=== PATIENT | female | born 1980 | race Caucasian/White ===

== ENCOUNTER 2021-11-17 13:16 | Emergency (ER) | payer MEDICAID, SELFPAY ==
[2021-11-17 13:23] VITALS: BP 173/92; PULSE 100; RESP 20; TEMP 37; O2SAT 96; BMI 47.2
[2021-11-17 13:28] LABS: Glucose Point of Care 392 mg/dL (70-110)
[2021-11-17 14:08] LABS: Basophils # 0.1 10^3/uL (0.0-0.1); Basophils % 0.3 %; Eosinophils % 0.2 %; Hemoglobin 14.1 g/dL (11.5-15.3); Lymphocytes # 1.8 10^3/uL (0.8-4.8); Lymphocytes % 12.4 %; Mean Corpuscular Hemoglobin 27.3 pg (28.0-34.0); Mean Corpuscular Volume 85.3 fl (81-99); Mean Platelet Volume 10.5 fL (7.4-10.4); Monocytes # 0.9 10^3/uL (0.2-0.9); Neutrophils # 11.91 10^3/uL (1.8-7.7); Neutrophils % 80.6 %; Nucleated Red Blood Cells % 0 %; Platelet Count 285 10^3/cmm (130-400); Red Blood Count 5.16 10^6/uL (4.1-5.3); Red Cell Distribution Width 13.2 % (12.1-15.1); White Blood Count 14.8 10^3/uL (4.0-10.0)
[2021-11-17 14:25] LABS: Ketone (Acetest) Serum Negative (Negative)
[2021-11-17 14:33] LABS: Alanine Aminotransferase 57 U/L (0-33); Albumin Level 4.4 g/dL (3.5-5.2); Alkaline Phosphatase 83 U/L (35-105); Anion Gap 21.6 (5-19); Aspartate Amino Transferase 31 U/L (0-32); Blood Urea Nitrogen 19 mg/dL (6-20); Calcium 9.6 mg/dL (8.5-10.5); Carbon Dioxide 24 mmol/L (22-29); Chloride 87 mmol/L (98-107); Globulin 2.8 g/dL (1.3-4.6); Glomerular Filtration Rate 54.2 mL/min (90-130); Glucose 386 mg/dL (65-115); Lipase 81 U/L (13-60); Osmolality Calculated 286 mOsm/kg (285-295); Potassium 3.6 mmol/L (3.5-5.1); Sodium 129 mmol/L (136-145); Total Bilirubin 0.6 mg/dL (0.15-1.2); Total Protein 7.2 g/dL (6.6-8.7)
--- NOTE | 2021-11-17 16:23 | W.ED.GENADLT ---
HPI - General Adult General: Chief complaint: Nausea/Vomiting/Diarrhea Stated complaint: Blood Sugars high, N/V Time Seen by Provider: 11/17/21 16:19 History of Present Illness: Patient is a 41-year-old female with history of type 2 diabetes presenting to the emergency room for concerns of uncontrolled glucose in the setting of nausea/vomiting/decreased p.o. intake and diarrhea x3 days. Patient tells me that there is no sick contact at home. She has not started any recent antibiotics or has had any recent travel. Patient tells me that she has been having more than 7 episodes diarrhea a day. Patient denies any melena or hematochezia. Patient has no complaints. Patient tells me that she has had decreased p.o. intake with associated nausea. Patient does not take insulin but only takes metformin. Patient denies any fever/chills, cough, runny nose, or sore throat. Patient also denies any chest pain or shortness of breath. Onset:3 days ago Duration:3 days Location:home Severity:moderate Associated symptoms: Reports nausea and vomiting; Deny chest pain, dyspnea, rash or palpitations Review of Systems Const: Denies: fever(s) or chills Eyes: Denies: change in vision ENMT: Denies: mouth pain Card: Denies: chest pain or palpitations Resp: Denies: dyspnea or non-productive cough GI: Reports: nausea, vomiting and diarrhea; Denies: abdominal pain : Denies: dysuria Musc: Denies: extremity pain Skin/Breast: Denies: rash or new lesions Neuro: Denies: weakness in extremities Psych: Reports: other (Normal mood) Jay/Lymph: Denies: easy bruising PFS ED PFSH: Medical History Diabetes Social History Smoking and tobacco status: never smoked Alcohol intake: never Substance/Drug Use: never Physical Exam Const: COMMON NORMALS: alert HENMT: COMMON NORMALS: atraumatic HEAD & SCALP: atraumatic MOUTH: moist mucous membranes not abnormal Eye: COMMON NORMALS: EOMs intact bilaterally and conjunctivae normal CONJUNCTIVA: Yes conjunctivae normal Neck/C-Spine: COMMON NORMALS: full ROM and supple Resp: COMMON NORMALS: normal respiratory effort and clear to auscultation bilaterally AUSCULTATION: clear to auscultation bilaterally Cardio: COMMON NORMALS: regular rate RATE: regular rate GI: COMMON NORMALS: Soft to palpation and non-tender PALPATION: Yes Soft to palpation OTHER: No focal TTP. NO guarding rebound, guarding, rigidity. No CVA tenderness to percussion. Neg Nuñez/Neg McBurney's point tenderness, no suprabupic tenderness to palpation. Extremity: COMMON NORMALS: full ROM Neuro: SENSORIUM/ORIENTATION: Yes alert MOTOR EXAM: No Abnormal motor strength present and Other motor observations present (no focal motor deficits) Psych: COMMON NORMALS: speech normal SPEECH: Yes normal speech MOOD & AFFECT: Yes euthymic mood Course Vital Signs: Vital signs: Vital Signs Temperature 98.6 F 11/17/21 13:23 Pulse Rate 89 11/17/21 19:01 Respiratory Rate 20 H 11/17/21 13:23 Blood Pressure 181/85 11/17/21 19:01 Pulse Oximetry 95 11/17/21 19:01 Oxygen Delivery Me thod 11/17/21 13:23 MDM - General Adult Medical Decision Making 41-year-old female history of type 2 diabetes currently only on metformin presenting to the emergency room with concerns of hyperglycemia in the setting of nausea and vomiting decreased p.o. intake for the last 3 days. Patient has no abdominal pain complaints. On physical exam, patient is hemodynamically stable, with no focal abdominal tenderness palpation. Lab work-up showed white count 14.8. Creatinine 1.1. I suspect the patient may be dehydrated today. Patient received 2 L fluid, 5 units of short-term insulin, with improvement of glucose. Patient has no signs of anion gap. Patient does not have any serum ketones. At present, do not suspect DKA. In terms of patient's diarrhea and nausea vomiting, suspected gastroenteritis at this time. I do not suspect that patient has any focal surgical pathology as patient does not have any focal abdominal tenderness palpation. I have given the patient fluids and GI cocktail with Zofran. Patient reports feeling symptomatically improved. Patient is able to tolerate p.o. now. Glucose improved on reassessment after 5u of insulin and IVF. I have given patient follow up with our outpatient case manager to be seen by our outpatient endocrinology to start on insulins for type 2 diabetes. Patient aware of a call from our outpatient case manager to schedule for appointment(s) and verbalizes understanding of the importance of following up. I have given patient follow up with our outpatient case manager to be seen by our outpatient PCP for establishing care. Patient aware of a call from our outpatient case manager to schedule for appointment(s) and verbalizes understanding of the importance of following up. Rx tylenol PRN abd pain, maalox/pepcid PRN dyspepsia, and zofran PRN nausea/vomiting Disposition: Discharge. Patient counseled regarding diagnostic impression, treatment plan. Patient given ED strict return precautions to return for continuation, worsening, or development of new symptoms. Instructed to f/u w/ PCP regarding symptoms today. Patient verbalized understanding. Lab Data : 11/17/21 13:49 11/17/21 13:49 Laboratory Results WBC 14.8 10^3/uL (4.0-10.0) H 11/17/21 13:49 RBC 5.16 10^6/uL (4.1-5.3) 11/17/21 13:49 Hgb 14.1 g/dL (11.5-15.3) 11/17/21 13:49 Hct 44.0 % (37.0-47.0) 11/17/21 13:49 MCV 85.3 fl (81-99) 11/17/21 13:49 MCH 27.3 pg (28.0-34.0) L 11/17/21 13:49 MCHC 32.0 g/dL (30.0-36.0) 11/17/21 13:49 RDW 13.2 % (12.1-15.1) 11/17/21 13:49 Plt Count 285 10^3/cmm (130-400) 11/17/21 13:49 MPV 10.5 fL (7.4-10.4) H 11/17/21 13:49 Neut % (Auto) 80.6 % 11/17/21 13:49 Lymph % (Auto) 12.4 % 11/17/21 13:49 [place] % (Auto) 6.0 % 11/17/21 13:49 Eos % (Auto) 0.2 % 11/17/21 13:49 Baso % (Auto) 0.3 % 11/17/21 13:49 Neut # (Auto) 11.91 10^3/uL (1.8-7.7) H 11/17/21 13:49 Lymph # (Auto) 1.8 10^3/uL (0.8-4.8) 11/17/21 13:49 [place] # (Auto) 0.9 10^3/uL (0.2-0.9) 11/17/21 13:49 Eos # (Auto) 0.0 10^3/uL (0.0-0.8) 11/17/21 13:49 Baso # (Auto) 0.1 10^3/uL (0.0-0.1) 11/17/21 13:49 Nucleated RBC % (auto) 0 % 11/17/21 13:49 Nucleated RBCs # 0.0 /100WBC 11/17/21 13:49 Sodium 129 mmol/L (136-145) L 11/17/21 13:49 Potassium 3.6 mmol/L (3.5-5.1) 11/17/21 13:49 Chloride 87 mmol/L (98-107) L 11/17/21 13:49 Carbon Dioxide 24 mmol/L (22-29) 11/17/21 13:49 Anion Gap 21.6 (5-19) H 11/17/21 13:49 BUN 19 mg/dL (6-20) 11/17/21 13:49 Creatinine 1.1 mg/dL (0.5-0.9) H 11/17/21 13:49 GFR Calculation 54.2 mL/min (90-130) L 11/17/21 13:49 Glucose 386 mg/dL (65-115) H 11/17/21 13:49 POC Glucose 232 mg/dL (70-110) H 11/17/21 18:10 Calculated Osmolality 286 mOsm/kg (285-295) 11/17/21 13:49 Calcium 9.6 mg/dL (8.5-10.5) 11/17/21 13:49 Total Bilirubin 0.6 mg/dL (0.15-1.2) 11/17/21 13:49 AST 31 U/L (0-32) 11/17/21 13:49 ALT 57 U/L (0-33) H 11/17/21 13:49 Alkaline Phosphatase 83 U/L (35-105) 11/17/21 13:49 Total Protein 7.2 g/dL (6.6-8.7) 11/17/21 13:49 Albumin 4.4 g/dL (3.5-5.2) 11/17/21 13:49 Globulin 2.8 g/dL (1.3-4.6) 11/17/21 13:49 Lipase 81 U/L (13-60) H 11/17/21 13:49 Urine HCG, Qual Negative (Negative) 11/17/21 18:19 Serum Ketones Negative (Negative) 11/17/21 13:49 Discharge Plan Discharge Patient Disposition: Home Clinical Impression: Hyperglycemia, Nausea & vomiting, Diarrhea Condition: Stable Prescriptions: New Pepcid 20 mg tablet 20 mg PO BID PRN (Reason: abdominal pain) 10 Days Qty: 20 0RF ondansetron 4 mg tablet,disintegrating 4 mg PO TID PRN (Reason: nausea and vomiting) 4 Days Qty: 12 0RF Maalox Advanced 1,000-60 mg tablet,chewable 1 tab PO TID PRN (Reason: abdominal pain) 7 Days Qty: 21 0RF No Action amlodipine 5 mg Tablet 5 mg PO DAILY metformin 1,000 mg Tablet 1,000 mg PO BID zinc 50 mg Tablet 50 mg PO BID hydrochlorothiazide 25 mg Tablet 25 mg PO DAILY albuterol sulfate 90 mcg/actuation Hfa Aerosol Inhaler 2 puff INHALATION 6XD PRN (Reason: Shortness Of Breath) Probiotic 100 billion cell Capsule 1 cap PO DAILY Discharge Orders: Discharge ED (Routine); Ordered 11/17/21 Ordered By: Zabrina Mcdonald Discharge Diet: Advance as tolerated Discharge Activity: Increase activity as tolerated Patient Instructions: Hyperglycemia, Acute Diarrhea (ED) Activity Restrictions/Additional Instructions: Please come back if you have any worsening abdominal pain, fever or chills, nausea or vomiting, diarrhea, blood in the stool, inability hold down liquid or solids, or any new concerning complaints. Our outpatient case manager will have you follow-up with an solution design and analysis manager and a primary cre provider in the next few days. You would be expected to have a phone call with our outpatient case manager who will put you on the schedule. You can expect a call from us in the next 2-3 days. If you don't hear from us, call us back in the emergency room at [phone]. Stand Alone Forms: Work/School Release Coding Level of Care Code ED Legal Director for Chg Fwd Exam Comprehensive
[2021-11-17] MEDS: sodium chloride 0.9% 1,000 ML 999 ML IV ×2 (16:51→18:15)
[2021-11-17] MEDS: ondansetron 2 mg/ML SDV 2 mL 4 MG IVP (16:51)
[2021-11-17] MEDS: lidocaine 2% viscous 15 ML, aluminum-mag hydrox-simethicon 30 ML, sucralfate oral liq 1 GM PO (16:53)
--- NOTE | 2021-11-17 16:57 | PC.NURSE ---
pt reports epigastric pain x2 days accompanied by diarrhea and vomiting, both yellow in color. Denies urinary symptoms. Pt reports having trouble controlling blood sugars over the last month but usually it is around 111. Pt lung sounds clear, bowel sounds present. Pt reports abdomen feels swollen.
[2021-11-17] MEDS: insulin lispro 100 unit/1 mL SUBCUT (17:03)
[2021-11-17 17:04] LABS: Glucose Point of Care 264 mg/dL (70-110)
[2021-11-17 18:20] LABS: Glucose Point of Care 232 mg/dL (70-110)
[2021-11-17 19:01] VITALS: BP 181/85; PULSE 89; O2SAT 95
--- NOTE | 2021-11-18 13:21 | DCPLANNER ---
Addendum entered by Tia Stephenson 12/29/21 12:52: Patient had a follow up appointment with endocrinology - patient did attend appointment Addendum entered by Tia Stephenson 11/26/21 07:57: Patient has a follow up appointment scheduled for Tuesday, December 28, [address] at 8:[address] Blank. Clinic will call patient with appointment information. Original Note: retail area manager had message to schedule a follow up appointment for patient with endocrinology. retail area manager sent patients information to the front office staff at endocrinology. Patients information will be printed and reviewed. Clinic will call patient with appointment information. retail area manager also had message to speak with patient about getting established with a primary care physician. retail area manager called phone number [phone], unable to speak with patient at this time.
== END 2021-11-17 19:00 | disposition home or self-care (01) ==
PROVIDERS: Emergency Provider Emergency Medicine
DX: E11.65 Type 2 diabetes mellitus with hyperglycemia (principal); R11.2 Nausea with vomiting, unspecified; R19.7 Diarrhea, unspecified; Z79.84 Long term (current) use of oral hypoglycemic drugs
CPT/HCPCS: 36415; 36416; 80053; 81025; 82009; 82962; 83690; 85025; 96361; 96372; 96374; 99284; J1815; J2405; J7030

== ENCOUNTER 2021-12-14 08:03 | Emergency (ER) | payer OTHER, MEDICAID, SELFPAY ==
[2021-12-14 08:08] VITALS: BP 169/123; PULSE 89; RESP 16; TEMP 36.6; O2SAT 95; BMI 45.6
[2021-12-14 08:31] LABS: Basophils # 0.1 10^3/uL (0.0-0.1); Basophils % 0.5 %; Eosinophils # 0.1 10^3/uL (0.0-0.8); Hematocrit 45.8 % (37.0-47.0); Hemoglobin 14.6 g/dL (11.5-15.3); Lymphocytes # 2.4 10^3/uL (0.8-4.8); Lymphocytes % 19.9 %; Mean Corpuscular HGB Conc 31.9 g/dL (30.0-36.0); Mean Corpuscular Hemoglobin 27.7 pg (28.0-34.0); Mean Corpuscular Volume 86.7 fl (81-99); Mean Platelet Volume 10.3 fL (7.4-10.4); Neutrophils % 70.4 %; Nucleated Red Blood Cells % 0 %; Platelet Count 325 10^3/cmm (130-400); Red Blood Count 5.28 10^6/uL (4.1-5.3); White Blood Count 12.2 10^3/uL (4.0-10.0)
[2021-12-14 08:46] LABS: Add Urine Culture? No; Add Urine Microscopic? YES; Bacteria Urine 2+ /hpf; Bilirubin Urine 1+ (Negative); Blood Urine Neg (Negative); Glucose Urine UA 4+ (Normal); Ketones Urine 1+ (Negative); Leukocyte Esterase Urine Negative (Negative); Mucus Urine 2+ /hpf; Nitrate Urine Negative (Negative); Protein Urine Trace (Negative); RBC Urine 0-4 /hpf (0-2); Urine Appearance SL Hazy (CLEAR); Urine Color Dark Yellow (Yellow); Urobilinogen Urine Norm (Negative); WBC Urine 0-4 /hpf (0-5); pH Urine 5 (5-7)
[2021-12-14 08:50] LABS: Alanine Aminotransferase 68 U/L (0-33); Albumin Level 4.5 g/dL (3.5-5.2); Alkaline Phosphatase 83 U/L (35-105); Aspartate Amino Transferase 34 U/L (0-32); Blood Urea Nitrogen 18 mg/dL (6-20); Calcium 10.1 mg/dL (8.5-10.5); Carbon Dioxide 21 mmol/L (22-29); Chloride 95 mmol/L (98-107); Globulin 3.4 g/dL (1.3-4.6); Glomerular Filtration Rate 60.5 mL/min (90-130); Glucose 281 mg/dL (65-115); Lipase 53 U/L (13-60); Osmolality Calculated 290 mOsm/kg (285-295); Sodium 134 mmol/L (136-145); Total Bilirubin 0.6 mg/dL (0.15-1.2); Total Protein 7.9 g/dL (6.6-8.7)
[2021-12-14 08:54] LABS: Anion Gap 21.7 (5-19); Potassium 3.7 mmol/L (3.5-5.1)
--- NOTE | 2021-12-14 08:58 | W.ED.GENADLT ---
HPI - General Adult General: Chief complaint: General Medical Stated complaint: high bloodsugar Time Seen by Provider: 12/14/21 08:33 Source: patient Mode of arrival: ambulatory Limitations: no limitations History of Present Illness: 41-year-old female presents emergency room comes leading of elevated blood sugars. He had blood sugars over 300 near 400 today she been nauseous she feels her blood pressure has been elevated as well just generally not feeling good. She is on metformin for her diabetes was recently started on Ozempic but she was not able to get it because of cost issues. She denies any chest pain she has nausea but no vomiting. Is been progressively worsening the last couple of days. Onset (ago): day(s) Severity: mild Quality: aching Pain Consistency: intermittent Relieving factors: none Exacerbating factors: none Associated symptoms: Deny chest pain, confusion, cough, diaphoresis, decreased appetite, dyspnea, fevers/chills, headache(s), malaise, nausea, rash, palpitations, seizures, short of breath, syncope, vomiting or weakness Review of Systems Const: Denies: fever(s), chills, fatigue, malaise or diaphoresis ENMT: Denies: throat pain, ear or mastoid pain, nasal discharge or nasal congestion Card: Denies: chest pain, palpitations or syncope Resp: Denies: dyspnea GI: Denies: nausea or vomiting : Denies: flank pain, difficulty voiding, dysuria, urinary frequency or urinary urgency Skin/Breast: Denies: rash Neuro: Denies: headache(s) or confusion [facility] ED PFSH: Medical History Diabetes Social History Smoking and tobacco status: never smoked Alcohol intake: never Female Reproductive History: Date of last menstrual period: 11/20/21 Physical Exam Const: GENERAL APPEARANCE: cooperative and comfortable ORIENTATION/CONSCIOUSNESS: Yes awake, Yes oriented to person, Yes oriented to place and Yes oriented to time HENMT: COMMON NORMALS: normocephalic, atraumatic and hearing grossly normal bilaterally HEAD & SCALP: normocephalic and atraumatic Resp: COMMON NORMALS: normal respiratory effort, No retractions, No use of accessory muscles and clear to auscultation bilaterally AUSCULTATION: clear to auscultation bilaterally Cardio: COMMON NORMALS: regular rate, regular rhythm and No murmurs present (Cardio) RATE: regular rate RHYTHM: regular rhythm GI: COMMON NORMALS: Soft to palpation and No hepatosplenomegaly present AUSCULTATION: Yes normoactive bowel sounds PALPATION: Yes Soft to palpation, No Tenderness to palpation present (GI), No Guarding due to palpation present (GI) and Yes No hepatosplenomegaly present Extremity: COMMON NORMALS: normal to inspection, capillary refill normal, no clubbing, cyanosis or edema, no calf tenderness and no pedal edema Neuro: SENSORIUM/ORIENTATION: Yes oriented to person, Yes oriented to place and Yes oriented to time Skin: COMMON NORMALS: no rashes or lesions noted GENERAL SKIN EXAM: no rashes or lesions noted Course Vital Signs: Vital signs: Vital Signs Temperature 97.8 F 12/14/21 08:08 Pulse Rate 85 12/14/21 11:41 Respiratory Rate 14 12/14/21 11:41 Blood Pressure 138/98 12/14/21 11:41 Pulse Oximetry 96 12/14/21 11:41 Oxygen Delivery Me thod 12/14/21 11:41 MDM - General Adult Medical Decision Making Patient is feeling better after fluids blood sugars improved we will discharge her home wrote her prescription for Ozempic that she can get on the [facility] program she is scheduled to see endocrinology discussed risk benefits and side effects of the Ozempic. Medical Records I reviewed the patient's medical records. Lab Data I reviewed the patient's lab results. : 12/14/21 08:23 12/14/21 08:23 Laboratory Results WBC 12.2 10^3/uL (4.0-10.0) H 12/14/21 08:23 RBC 5.28 10^6/uL (4.1-5.3) 12/14/21 08:23 Hgb 14.6 g/dL (11.5-15.3) 12/14/21 08:23 Hct 45.8 % (37.0-47.0) 12/14/21 08:23 MCV 86.7 fl (81-99) 12/14/21 08:23 MCH 27.7 pg (28.0-34.0) L 12/14/21 08:23 MCHC 31.9 g/dL (30.0-36.0) 12/14/21 08: RDW 13.0 % (12.1-15.1) 12/14/21 08: Plt Count 325 10^3/cmm (130-400) 12/14/21 08:23 MPV 10.3 fL (7.4-10.4) 12/14/21 08: Neut % (Auto) 70.4 % 12/14/21 08: Lymph % (Auto) 19.9 % 12/14/21 08:23 [place] % (Auto) 8.0 % 12/14/21 08: Eos % (Auto) 1.0 % 12/14/21 08: Baso % (Auto) 0.5 % 12/14/21 08: Neut # (Auto) 8.60 10^3/uL (1.8-7.7) H 12/14/21 08: Lymph # (Auto) 2.4 10^3/uL (0.8-4.8) 12/14/21 08: [place] # (Auto) 1.0 10^3/uL (0.2-0.9) H 12/14/21 08:23 Eos # (Auto) 0.1 10^3/uL (0.0-0.8) 12/14/21 08: Baso # (Auto) 0.1 10^3/uL (0.0-0.1) 12/14/21 08: Nucleated RBC % (auto) 0 % 12/14/21 08: Nucleated RBCs # 0.0 /100WBC 12/14/21 08: Sodium 134 mmol/L (136-145) L 12/14/21 08:23 Potassium 3.7 mmol/L (3.5-5.1) 12/14/21 08: Chloride 95 mmol/L (98-107) L 12/14/21 08:23 Carbon Dioxide 21 mmol/L (22-29) L 12/14/21 08:23 Anion Gap 21.7 (5-19) H 12/14/21 08:23 BUN 18 mg/dL (6-20) 12/14/21 08:23 Creatinine 1.0 mg/dL (0.5-0.9) H 12/14/21 08:23 GFR Calculation 60.5 mL/min (90-130) L 12/14/21 08:23 Glucose 281 mg/dL (65-115) H 12/14/21 08:23 POC Glucose 260 mg/dL (70-110) H 12/14/21 09:06 Calculated Osmolality 290 mOsm/kg (285-295) 12/14/21 08:23 Calcium 10.1 mg/dL (8.5-10.5) 12/14/21 08:23 Total Bilirubin 0.6 mg/dL (0.15-1.2) 12/14/21 08:23 AST 34 U/L (0-32) H 12/14/21 08:23 ALT 68 U/L (0-33) H 12/14/21 08:23 Alkaline Phosphatase 83 U/L (35-105) 12/14/21 08:23 Total Protein 7.9 g/dL (6.6-8.7) 12/14/21 08:23 Albumin 4.5 g/dL (3.5-5.2) 12/14/21 08:23 Globulin 3.4 g/dL (1.3-4.6) 12/14/21 08:23 Lipase 53 U/L (13-60) 12/14/21 08:23 HCG, Qual Negative (Negative) 12/14/21 08:50 Urine Color Dark yellow (Yellow) 12/14/21 08:23 Urine Appearance Sl hazy (CLEAR) 12/14/21 08:23 Urine pH 5 (5-7) 12/14/21 08:23 Ur Specific [place] 1.020 (1.005-1.030) 12/14/21 08:23 Urine Protein Trace (Negative) 12/14/21 08:23 Urine Glucose (UA) 4+ (Normal) H 12/14/21 08:23 Urine Ketones 1+ (Negative) H 12/14/21 08:23 Urine Blood Neg (Negative) 12/14/21 08:23 Urine Nitrate Negative (Negative) 12/14/21 08:23 Urine Bilirubin 1+ (Negative) H 12/14/21 08:23 Urine Urobilinogen Norm mg/dL (Negative) 12/14/21 08:23 Ur Leukocyte Esterase Negative (Negative) 12/14/21 08:23 Urine RBC 0-4 /hpf (0-2) H 12/14/21 08:23 Urine WBC 0-4 /hpf (0-5) H 12/14/21 08:23 Ur Squamous Epith Cells 10-15 /hpf (0-5) H 12/14/21 08:23 Amorphous Sediment Not Reportable 12/14/21 08:23 Urine Bacteria 2+ /hpf (NONE) H 12/14/21 08:23 Urine Mucus 2+ /hpf 12/14/21 08:23 Serum Ketones Negative (Negative) 12/14/21 08:50 Discharge Plan Discharge Patient Disposition: Home Clinical Impression: Hyperglycemia, Diabetes Condition: Stable Prescriptions: New Ozempic 1 mg/dose (4 mg/3 mL) pen injector 1 mg SUBCUT ONCE Qty: 3 0RF No Action metformin 1,000 mg Tablet 1,000 mg PO BID zinc 50 mg Tablet 50 mg PO QAM hydrochlorothiazide 25 mg Tablet 25 mg PO QAM albuterol sulfate 90 mcg/actuation Hfa Aerosol Inhaler 2 puff INHALATION Q4H PRN (Reason: Shortness Of Breath) Probiotic 100 billion cell Capsule 1 cap PO QAM amlodipine 10 mg tablet 10 mg PO QAM ibuprofen 200 mg Tablet 400 mg PO Q6H PRN (Reason: Pain) Discharge Orders: Discharge ED (Routine); Ordered 12/14/21 Ordered By: Kervin Mcdonough Discharge Diet: Diabetic Discharge Activity: Increase activity as tolerated Patient Instructions: Opioid Safety, Pain Management Activity Restrictions/Additional Instructions: Monitor blood sugars daily. Follow-up with endocrinology as scheduled. Return if there are problems. Coding Level of Care Code ED Vice President Of Instruction for Lizet Vickers
--- NOTE | 2021-12-14 08:59 | PC.PHAR ---
pt states she takes care of her own medications-pt states she was prescribed ozempic last week but states she didnt get states it was over a 1,000 dollars-notes are made in the pharmacy comments
[2021-12-14 09:18] LABS: Ketone (Acetest) Serum Negative (Negative)
[2021-12-14 09:20] LABS: Glucose Point of Care 260 mg/dL (70-110)
[2021-12-14] MEDS: ondansetron 2 mg/ML SDV 2 mL 4 MG IVP (09:20)
[2021-12-14] MEDS: sodium chloride 0.9% 1,000 ML 999 ML IV (09:20)
[2021-12-14 09:21] LABS: HCG, Serum Qual Negative (Negative)
[2021-12-14 11:41] VITALS: BP 138/98; PULSE 85; RESP 14; O2SAT 96
[2021-12-15 08:40] LABS: Glucose Point of Care 287 mg/dL (70-110)
== END 2021-12-14 11:43 | disposition home or self-care (01) ==
PROVIDERS: Physician Assistant; Emergency Provider Family Medicine
DX: E11.65 Type 2 diabetes mellitus with hyperglycemia (principal); Z79.84 Long term (current) use of oral hypoglycemic drugs
CPT/HCPCS: 36416; 80053; 81001; 82009; 82962; 83690; 84703; 85025; 96361; 96374; 99284; J2405; J7030

== ENCOUNTER → 2021-12-28 09:00 | Outpatient (BNVA) | payer MEDICAID, SELFPAY | PROVIDERS: Referring Provider Emergency Medicine; Visit Provider Internal Medicine | DX: E78.2 Mixed hyperlipidemia (principal) | CPT/HCPCS: 36415; 80061; 82947; 84681; 86337; 86341 ==

== ENCOUNTER 2022-04-05 08:27 | Emergency (ER) | payer MEDICAID, SELFPAY ==
--- NOTE | 2022-04-05 08:32 | XRR_ITS ---
PROCEDURE INFORMATION: Exam: XR Chest Exam date and time: 04/05/2022 9:15 AM Age: 41 years old Clinical indication: Cough and dyspnea; Additional info: Dyspnea/cough TECHNIQUE: Imaging protocol: Radiologic exam of the chest. Views: 1 view. COMPARISON: No relevant prior studies available. FINDINGS: Lungs: Unremarkable. No consolidation. Pleural spaces: Unremarkable. No pleural effusion. No pneumothorax. Heart/Mediastinum: Unremarkable. No cardiomegaly. Bones/joints: Unremarkable. XR/XR chest 1V portable [id number] IMPRESSION: No acute findings.
[2022-04-05 08:40] VITALS: BP 158/110; PULSE 85; RESP 18; TEMP 37.1; O2SAT 98; BMI 45.8
--- NOTE | 2022-04-05 08:43 | ECG_ITS ---
[facility] Test Date: 2022-04-05 Pat Name: Carmelina Garcia Department: Room: Gender: Female Quality Compliance Coordinator: : 1980 Requested By: Kervin Still Order Number: [id number] Karmen MD: Arianna Freeman M.D. Measurements Intervals Phillips Rate: 86 P: 30 MI: 161 QRS: -45 QRSD: 102 T: 21 QT: 372 QTc: 446 Interpretive Statements SINUS RHYTHM LOW QRS VOLTAGE IN PRECORDIAL LEADS [QRS DEFLECTION < 1.0 mV IN CHEST LEADS] INCOMPLETE RIGHT BUNDLE BRANCH BLOCK [90+ ms QRS DURATION, TERMINAL R IN V1/V2, 40+ ms S IN I/aVL/V4/V5/V6] LEFT ANTERIOR FASCICULAR BLOCK [QRS AXIS <= -45, QR IN I, RS IN II] POSSIBLE ANTERIOR MYOCARDIAL INFARCTION , OF INDETERMINATE AGE [30 ms Q WAVE IN V3/V4, OR R < 0.2 mV IN V4] No previous ECG available for comparison Electronically Signed On 04-05-2022 20:25:15 HEATER WORKER by Arianna Freeman M.D. [email or web address]
[2022-04-05 08:44] VITALS: BP 155/103; PULSE 80; O2SAT 97
--- NOTE | 2022-04-05 08:58 | ED_ITS ---
HPI - General Adult General: Chief complaint: General Medical Stated complaint: bp issues Time Seen by Provider: 04/05/22 08:29 History of Present Illness: 41-year-old male presents to the emergency room complaining of just generally not feeling well. She complaining the last several days she just felt poorly she is noted some high blood pressures at home she is diabetic. She is on amlodipine and hydrochlorothiazide. Not had any recent change in medication she denies any recent illness no vomiting or diarrhea she is. No chest or abdominal pain she does have a little bit of a headache she noticed anything that makes it better or worse this morning she felt more flushed and the headache was worsening so she presents to the emergency room and the nurses notes she also made a comment to them about flank pain but had made no comment to me initially about this. Onset (ago): day(s) Location: abdomen Associated symptoms: Deny chest pain, dyspnea, malaise, nausea, rash or vomiting Review of Systems Const: Denies: fever(s), chills, body aches, change in appetite, fatigue or malaise ENMT: Denies: throat pain, ear or mastoid pain, nasal discharge or nasal congestion Card: Denies: chest pain, edema, dyspnea on exertion or orthopnea Resp: Denies: dyspnea, productive cough or non-productive cough GI: Denies: abdominal pain, nausea, vomiting, hematemesis, coffee ground emesis, diarrhea, constipation, bloating, hematochezia or melena : Denies: flank pain, difficulty voiding, dysuria, urinary frequency or urinary urgency Skin/Breast: Denies: rash or pruritus PFSH ED PFSH: Medical History Diabetes Surgical History History of colonoscopy History of laparoscopic cholecystectomy History of tubal ligation Social History Smoking and tobacco status: never smoked Alcohol intake: never Female Reproductive History: Date of last menstrual period: 11/20/21 Physical Exam Const: GENERAL APPEARANCE: cooperative and comfortable ORIENTATION/CON SCIOUSNESS: Yes awake, Yes oriented to person, Yes oriented to place and Yes oriented to time HENMT: COMMON NORMALS: normocephalic, atraumatic and hearing grossly normal bilaterally HEAD & SCALP: normocephalic and atraumatic Resp: COMMON NORMALS: normal respiratory effort, No retractions, No use of accessory muscles and clear to auscultation bilaterally AUSCULTATION: clear to auscultation bilaterally Cardio: COMMON NORMALS: regular rate, regular rhythm and No murmurs present (Cardio) RATE: regular rate RHYTHM: regular rhythm GI: COMMON NORMALS: Soft to palpation and No hepatosplenomegaly present AUSCULTATION: Yes normoactive bowel sounds PALPATION: Yes Soft to palpation, No Tenderness to palpation present (GI), No Guarding due to palpation present (GI) and Yes No hepatosplenomegaly present Extremity: COMMON NORMALS: normal to inspection, capillary refill normal, no clubbing, cyanosis or edema, no calf tenderness and no pedal edema Neuro: SENSORIUM/ORIENTATION: Yes oriented to person, Yes oriented to place and Yes oriented to time Skin: COMMON NORMALS: no rashes or lesions noted GENERAL SKIN EXAM: no rash es or lesions noted Course Vital Signs: Vital signs: Vital Signs Temperature 98.8 F 04/05/22 08:40 Pulse Rate 89 04/05/22 11:16 Respiratory Rate 19 H 04/05/22 11:16 Blood Pressure 150/93 04/05/22 11:16 Pulse Oximetry 97 04/05/22 11:16 Oxygen Delivery Me thod 04/05/22 11:01 MDM - General Adult Medical Decision Making No significant flank pain on exam urine is normal. Blood pressure mildly elevated and very slight decrease in potassium we will add lisinopril 20 mg daily and have her follow-up for repeat BMP within 1 week with her primary care doctor return if is further problems. Medical Records I reviewed the patient's medical records. Lab Data I reviewed the patient's lab results. 04/05/22 08:54 04/05/22 08:54 Radiology Impressions Chest X-Ray 04/05/22 08:32 IMPRESSION: No acute findings. Laboratory Results WBC 14.8 10^3/uL (4.0-10.0) H 04/05/22 08:54 RBC 5.16 10^6/uL (4.1-5.3) 04/05/22 08:54 Hgb 13.9 g/dL (11.5-15.3) 04/05/22 08:54 Hct 44.4 % (37.0-47.0) 04/05/22 08:54 MCV 86.0 fl (81-99) 04/05/22 08:54 MCH 26.9 pg (28.0-34.0) L 04/05/22 08:54 MCHC 31.3 g/dL (30.0-36.0) 04/05/22 08:54 RDW 13.2 % (12.1-15.1) 04/05/22 08:54 Plt Count 343 10^3/cmm (130-400) 04/05/22 08:54 MPV 9.9 fL (7.4-10.4) 04/05/22 08:54 Neut % (Auto) 70.0 % 04/05/22 08:54 Lymph % (Auto) 19.4 % 04/05/22 08:54 [place] % (Auto) 8.5 % 04/05/22 08:54 Eos % (Auto) 1.1 % 04/05/22 08:54 Baso % (Auto) 0.5 % 04/05/22 08:54 Neut # (Auto) 10.35 10^3/uL (1.8-7.7) H 04/05/22 08:54 Lymph # (Auto) 2.9 10^3/uL (0.8-4.8) 04/05/22 08:54 [place] # (Auto) 1.3 10^3/uL (0.2-0.9) H 04/05/22 08:54 Eos # (Auto) 0.2 10^3/uL (0.0-0.8) 04/05/22 08:54 Baso # (Auto) 0.1 10^3/uL (0.0-0.1) 04/05/22 08:54 Nucleated RBC % (auto) 0 % 04/05/22 08:54 Nucleated RBCs # 0.0 /100WBC 04/05/22 08:54 Sodium 137 mmol/L (136-145) 04/05/22 08:54 Potassium 3.3 mmol/L (3.5-5.1) L 04/05/22 08:54 Chloride 96 mmol/L (98-107) L 04/05/22 08:54 Carbon Dioxide 29 mmol/L (22-29) 04/05/22 08:54 Anion Gap 15.3 (5-19) 04/05/22 08:54 BUN 17 mg/dL (6-20) 04/05/22 08:54 Creatinine 0.9 mg/dL (0.5-0.9) 04/05/22 08:54 GFR Calculation 68.3 mL/min (90-130) L 04/05/22 08:54 Glucose 157 mg/dL (65-115) H 04/05/22 08:54 Calculated Osmolality 289 mOsm/kg (285-295) 04/05/22 08:54 Calcium 9.8 mg/dL (8.5-10.5) 04/05/22 08:54 Total Bilirubin 0.7 mg/dL (0.15-1.2) 04/05/22 08:54 AST 23 U/L (0-32) 04/05/22 08:54 ALT 34 U/L (0-33) H 04/05/22 08:54 Alkaline Phosphatase 80 U/L (35-105) 04/05/22 08:54 Total Protein 7.8 g/dL (6.6-8.7) 04/05/22 08:54 Albumin 4.4 g/dL (3.5-5.2) 04/05/22 08:54 Globulin 3.4 g/dL (1.3-4.6) 04/05/22 08:54 Urine Color Yellow (Yellow) 04/05/22 09:10 Urine Appearance Clear (CLEAR) 04/05/22 09:10 Urine pH 5 (5-7) 04/05/22 09:10 Ur Specific [place] 1.020 (1.005-1.030) 04/05/22 09:10 Urine Protein Trace (Negative) 04/05/22 09:10 Urine Glucose (UA) Norm (Normal) 04/05/22 09:10 Urine Ketones Negative (Negative) 04/05/22 09:10 Urine Blood Neg (Negative) 04/05/22 09:10 Urine Nitrate Negative (Negative) 04/05/22 09:10 Urine Bilirubin 1+ (Negative) H 04/05/22 09:10 Urine Urobilinogen Norm mg/dL (Negative) 04/05/22 09:10 Ur Leukocyte Esterase Negative (Negative) 04/05/22 09:10 Urine RBC None /hpf (0-2) 04/05/22 09:10 Urine WBC 0-4 /hpf (0-5) H 04/05/22 09:10 Ur Squamous Epith Cells 5-10 /hpf (0-5) H 04/05/22 09:10 Amorphous Sediment Not Reportable 04/05/22 09:10 Urine Bacteria 2+ /hpf (NONE) H 04/05/22 09:10 Hyaline Casts 5-10 /lpf H 04/05/22 09:10 Discharge Plan Discharge Patient Disposition: Home Clinical Impression: HTN (hypertension), Diabetes type 2, uncontrolled Condition: Stable Prescriptions: New lisinopril 20 mg tablet 20 mg PO DAILY Qty: 30 0RF No Action insulin glargine [Lantus Solostar U-100 Insulin] 100 unit/mL (3 mL) insulin pen 50 unit SUBCUT DAILY 30 Days Qty: 15 3RF (DME) pen needle, diabetic [Comfort EZ Pen [place]] 32 gauge x 5/32 needle See Rx Instructions .Route Qty: 400 3RF Rx Instructions: As directed insulin aspart U-100 [Novolog Flexpen U-100 Insulin] 100 unit/mL (3 mL) insulin pen 20 unit SUBCUT .TIDAC 90 Days Qty: 60 3RF zinc acetate 50 mg (zinc) Capsule 50 mg PO DAILY chlorthalidone 25 mg tablet 25 mg PO DAILY albuterol sulfate 90 mcg/actuation Hfa Aerosol Inhaler 2 puff INHALATION Q4H PRN (Reason: Shortness Of Breath) Probiotic 100 billion cell Capsule 1 cap PO QAM amlodipine 10 mg tablet 10 mg PO QAM ibuprofen 200 mg Tablet 400 mg PO Q6H PRN (Reason: Pain) Discharge Orders: Discharge ED (Routine); Ordered 04/05/22 Ordered By: Kervin Mcdonough Referrals: Owen Barba MD [Primary Care Provider] - Discharge Diet: Usual diet Discharge Activity: Increase activity as tolerated Patient Instructions: Opioid Safety, Pain Management Activity Restrictions/Additional Instructions: You were seen today for elevation of blood pressure. Blood pressure is mildly elevated. Your potassium was also slightly low. You are started on lisinopril 20 mg daily in addition to your current medications follow-up with primary care doctor to recheck your blood pressure within the next 7 to 10 days. Coding Level of Care Code ED Board Certified Behavioral Analyst for Lizet Vickers
[2022-04-05 09:00] LABS: Basophils # 0.1 10^3/uL (0.0-0.1); Basophils % 0.5 %; Eosinophils # 0.2 10^3/uL (0.0-0.8); Eosinophils % 1.1 %; Hematocrit 44.4 % (37.0-47.0); Hemoglobin 13.9 g/dL (11.5-15.3); Lymphocytes # 2.9 10^3/uL (0.8-4.8); Lymphocytes % 19.4 %; Mean Corpuscular HGB Conc 31.3 g/dL (30.0-36.0); Mean Corpuscular Hemoglobin 26.9 pg (28.0-34.0); Mean Platelet Volume 9.9 fL (7.4-10.4); Monocytes # 1.3 10^3/uL (0.2-0.9); Monocytes % 8.5 %; Neutrophils # 10.35 10^3/uL (1.8-7.7); Nucleated Red Blood Cells % 0 %; Platelet Count 343 10^3/cmm (130-400); Red Blood Count 5.16 10^6/uL (4.1-5.3); Red Cell Distribution Width 13.2 % (12.1-15.1); White Blood Count 14.8 10^3/uL (4.0-10.0)
[2022-04-05 09:22] LABS: Alanine Aminotransferase 34 U/L (0-33); Albumin Level 4.4 g/dL (3.5-5.2); Alkaline Phosphatase 80 U/L (35-105); Anion Gap 15.3 (5-19); Aspartate Amino Transferase 23 U/L (0-32); Blood Urea Nitrogen 17 mg/dL (6-20); Calcium 9.8 mg/dL (8.5-10.5); Carbon Dioxide 29 mmol/L (22-29); Chloride 96 mmol/L (98-107); Globulin 3.4 g/dL (1.3-4.6); Glomerular Filtration Rate 68.3 mL/min (90-130); Glucose 157 mg/dL (65-115); Osmolality Calculated 289 mOsm/kg (285-295); Potassium 3.3 mmol/L (3.5-5.1); Sodium 137 mmol/L (136-145); Total Bilirubin 0.7 mg/dL (0.15-1.2); Total Protein 7.8 g/dL (6.6-8.7)
[2022-04-05 09:41] LABS: Add Urine Microscopic? YES; Bilirubin Urine 1+ (Negative); Blood Urine Neg (Negative); Glucose Urine UA Norm (Normal); Ketones Urine Negative (Negative); Leukocyte Esterase Urine Negative (Negative); Nitrate Urine Negative (Negative); Protein Urine Trace (Negative); Urine Appearance Clear (CLEAR); Urine Color Yellow (Yellow); Urobilinogen Urine Norm (Negative); pH Urine 5 (5-7)
[2022-04-05 09:52] LABS: Bacteria Urine 2+ /hpf; WBC Urine 0-4 /hpf (0-5)
[2022-04-05 09:53] LABS: Add Urine Culture? No
[2022-04-05] MEDS: lisinopril 20 mg Tablet PO (10:25)
[2022-04-05] MEDS: hyDRALAzine 20 mg/mL INJ 1 mL 10 MG IVP (10:26)
[2022-04-05 10:27] VITALS: BP 150/117; PULSE 83; RESP 18; O2SAT 97
[2022-04-05] MEDS: potassium chloride oral liq 20 mEq/15 mL UDC 40 MEQ PO (10:41)
[2022-04-05 11:01] VITALS: BP 150/93; PULSE 82; RESP 18; O2SAT 99
[2022-04-05 11:16] VITALS: BP 150/93; PULSE 89; RESP 19; O2SAT 97
== END 2022-04-05 11:17 | disposition home or self-care (01) ==
PROVIDERS: Emergency Provider Family Medicine; PCP Family Medicine
DX: I10 Essential (primary) hypertension (principal); E11.9 Type 2 diabetes mellitus without complications; Z79.4 Long term (current) use of insulin
CPT/HCPCS: 71045; 80053; 81001; 85025; 93005; 96374; 99285; J0360

== ENCOUNTER 2022-05-11 16:15 | Emergency (ER) | payer OTHER, MEDICAID, SELFPAY ==
[2022-05-11 16:27] VITALS: BP 135/82; PULSE 84; RESP 20; TEMP 36.8; O2SAT 97; BMI 47.2
[2022-05-11 17:01] LABS: Add Urine Microscopic? NO; Charge for UA Resulting for Rev
[2022-05-11 17:06] LABS: Basophils # 0.1 10^3/uL (0.0-0.1); Basophils % 0.5 %; Eosinophils # 0.2 10^3/uL (0.0-0.8); Eosinophils % 1.2 %; Hematocrit 40.9 % (37.0-47.0); Lymphocytes # 3.2 10^3/uL (0.8-4.8); Lymphocytes % 19.2 %; Mean Corpuscular HGB Conc 31.8 g/dL (30.0-36.0); Mean Corpuscular Hemoglobin 27.1 pg (28.0-34.0); Mean Corpuscular Volume 85.4 fl (81-99); Mean Platelet Volume 10.1 fL (7.4-10.4); Monocytes # 1.3 10^3/uL (0.2-0.9); Monocytes % 7.9 %; Neutrophils # 11.77 10^3/uL (1.8-7.7); Neutrophils % 70.8 %; Nucleated Red Blood Cells % 0 %; Platelet Count 313 10^3/cmm (130-400); Red Blood Count 4.79 10^6/uL (4.1-5.3); White Blood Count 16.6 10^3/uL (4.0-10.0)
[2022-05-11 17:12] LABS: Bilirubin Urine Neg (Negative); Blood Urine Neg (Negative); Glucose Urine UA Norm (Normal); Ketones Urine Negative (Negative); Leukocyte Esterase Urine Negative (Negative); Nitrate Urine Negative (Negative); Protein Urine Neg (Negative); Urine Appearance Clear (CLEAR); Urine Color Yellow (Yellow); Urobilinogen Urine Neg (Negative); pH Urine 6 (5-7)
[2022-05-11 17:47] LABS: HCG, Serum Qual Negative (Negative)
[2022-05-11 17:50] LABS: Alanine Aminotransferase 26 U/L (0-33); Albumin Level 4.2 g/dL (3.5-5.2); Alkaline Phosphatase 79 U/L (35-105); Anion Gap 15.7 (5-19); Aspartate Amino Transferase 18 U/L (0-32); Blood Urea Nitrogen 25 mg/dL (6-20); Calcium 10.1 mg/dL (8.5-10.5); Carbon Dioxide 29 mmol/L (22-29); Chloride 100 mmol/L (98-107); Glucose 158 mg/dL (65-115); Lipase 51 U/L (13-60); Osmolality Calculated 300 mOsm/kg (285-295); Potassium 3.7 mmol/L (3.5-5.1); Sodium 141 mmol/L (136-145); Total Bilirubin 0.4 mg/dL (0.15-1.2); Total Protein 7.2 g/dL (6.6-8.7)
--- NOTE | 2022-05-11 18:32 | W.ED.FEMALGU ---
HPI - Female Genitourinary General: Chief complaint: Urogenital-Female Stated complaint: sent from , possible appy Time Seen by Provider: 05/11/22 18:32 History of Present Illness: 41-year-old female comes in today with complaints of right-sided flank pain radiating to the abdomen. Patient reports pains been worse today with several episodes of increased pain and discomfort. Patient denies any fever. Patient reports no nausea or vomiting. Patient has had a history of colitis, cholecystectomy, diabetes mellitus, pancreatitis. Patient appears nontoxic. Patient appears in mild to moderate pain. Associated symptoms: Reports abdominal pain Date of Last Menstrual Period: 11/20/21 Review of Systems GI: Reports: abdominal pain : Reports: flank pain PFS ED PFSH: Medical History Diabetes Surgical History History of colonoscopy History of laparoscopic cholecystectomy History of tubal ligation Social History Smoking and tobacco status: never smoked Alcohol intake: never Female Reproductive History: Date of last menstrual period: 11/20/21 Physical Exam Const: COMMON NORMALS: alert HENMT: COMMON NORMALS: normocephalic HEAD & SCALP: normocephalic Neck/C-Spine: COMMON NORMALS: full ROM Resp: COMMON NORMALS: normal respiratory effort and clear to auscultation bilaterally AUSCULTATION: clear to auscultation bilaterally Cardio: COMMON NORMALS: regular rate and regular rhythm RATE: regular rate RHYTHM: regular rhythm GI: COMMON NORMALS: Soft to palpation and non-tender PALPATION: Yes Soft to palpation : COMMON NORMALS: Yes no CVA tenderness BLADDER/KIDNEY EXAM: Yes no CVA tenderness Back/Pelvis: COMMON NORMALS: no CVA tenderness Extremity: COMMON NORMALS: no pedal edema Neuro: SENSORIUM/ORIENTATION: Yes alert Skin: COMMON NORMALS: turgor normal GENERAL SKIN EXAM: turgor normal Course Vital Signs: Vital signs: Vital Signs Temperature 98.3 F 05/11/22 16:27 Pulse Rate 64 05/11/22 20:06 Respiratory Rate 16 05/11/22 20:06 Blood Pressure 124/81 05/11/22 20:06 Pulse Oximetry 95 05/11/22 20:06 Oxygen Delivery Me thod 05/11/22 19:24 MDM - Female Medical Decision Making 41-year-old female comes in today for complaints of right flank pain radiating to the abdomen. Patient appears nontoxic. Patient does have a history of gallbladder removal for colitis. Review of the record also notes a history of pancreatitis. Abdomen soft with normal active bowel sounds. No edema is noted in the extremities. Oral mucosa is normal. Differential diagnosis includes but limited to pancreatitis, diverticulitis, colitis, pyelonephritis, renal colic. CBC noted some mild leukocytosis at 16.6. CMP noted some increase in creatinine to 1.2. Both of these levels seems to run high normally for this patient. Patient's glucose is 158. Urinalysis was clear. CT of the abdomen pelvis noted no acute abnormalities. Reviewed exam with patient with recommendation for treatment and follow-up. Patient reported understanding and agreed to plan. Patient has had a recent colonoscopy within the last year that showed no abnormalities. Recommended patient follow back up with primary care or return to the ER for worsening symptoms such as blood in the vomit or stool or high fever. Lab Data 05/11/22 16:40 05/11/22 16:40 Radiology Impressions Abdomen/Pelvis CT 05/11/22 18:46 IMPRESSION: 1. No acute findings. 2. Pulmonary nodules measuring up to 6 mm. For patients at low risk (minimal or absent history of smoking and of other known risk factors), recommend CT Chest at 3-6 months, then consider CT Chest at 18-24 months. For patients at high risk (history of smoking or of other known risk factors), recommend CT Chest at 3-6 months, then CT Chest at 18-24 months. (Reference: Ilan) References: Ilan Avery et al. Guidelines for Management of Incidental Pulmonary Nodules Detected on CT Images: From the Fleischner Society 2017. Radiology. 2017;284(1):228-243. Laboratory Results WBC 16.6 10^3/uL (4.0-10.0) H 05/11/22 16:40 RBC 4.79 10^6/uL (4.1-5.3) 05/11/22 16:40 Hgb 13.0 g/dL (11.5-15.3) 05/11/22 16:40 Hct 40.9 % (37.0-47.0) 05/11/22 16:40 MCV 85.4 fl (81-99) 05/11/22 16:40 MCH 27.1 pg (28.0-34.0) L 05/11/22 16:40 MCHC 31.8 g/dL (30.0-36.0) 05/11/22 16:40 RDW 14.0 % (12.1-15.1) 05/11/22 16:40 Plt Count 313 10^3/cmm (130-400) 05/11/22 16:40 MPV 10.1 fL (7.4-10.4) 05/11/22 16:40 Neut % (Auto) 70.8 % 05/11/22 16:40 Lymph % (Auto) 19.2 % 05/11/22 16:40 [place] % (Auto) 7.9 % 05/11/22 16:40 Eos % (Auto) 1.2 % 05/11/22 16:40 Baso % (Auto) 0.5 % 05/11/22 16:40 Neut # (Auto) 11.77 10^3/uL (1.8-7.7) H 05/11/22 16:40 Lymph # (Auto) 3.2 10^3/uL (0.8-4.8) 05/11/22 16:40 [place] # (Auto) 1.3 10^3/uL (0.2-0.9) H 05/11/22 16:40 Eos # (Auto) 0.2 10^3/uL (0.0-0.8) 05/11/22 16:40 Baso # (Auto) 0.1 10^3/uL (0.0-0.1) 05/11/22 16:40 Nucleated RBC % (auto) 0 % 05/11/22 16:40 Nucleated RBCs # 0.0 /100WBC 05/11/22 16:40 Sodium 141 mmol/L (136-145) 05/11/22 16:40 Potassium 3.7 mmol/L (3.5-5.1) 05/11/22 16:40 Chloride 100 mmol/L (98-107) 05/11/22 16:40 Carbon Dioxide 29 mmol/L (22-29) 05/11/22 16:40 Anion Gap 15.7 (5-19) 05/11/22 16:40 BUN 25 mg/dL (6-20) H 05/11/22 16:40 Creatinine 1.2 mg/dL (0.5-0.9) H 05/11/22 16:40 GFR Calculation 49.0 mL/min (90-130) L 05/11/22 16:40 Glucose 158 mg/dL (65-115) H 05/11/22 16:40 Calculated Osmolality 300 mOsm/kg (285-295) H 05/11/22 16:40 Calcium 10.1 mg/dL (8.5-10.5) 05/11/22 16:40 Total Bilirubin 0.4 mg/dL (0.15-1.2) 05/11/22 16:40 AST 18 U/L (0-32) 05/11/22 16:40 ALT 26 U/L (0-33) 05/11/22 16:40 Alkaline Phosphatase 79 U/L (35-105) 05/11/22 16:40 Total Protein 7.2 g/dL (6.6-8.7) 05/11/22 16:40 Albumin 4.2 g/dL (3.5-5.2) 05/11/22 16:40 Globulin 3.0 g/dL (1.3-4.6) 05/11/22 16:40 Lipase 51 U/L (13-60) 05/11/22 16:40 HCG, Qual Negative (Negative) 05/11/22 16:40 Urine Color Yellow (Yellow) 05/11/22 16:36 Urine Appearance Clear (CLEAR) 05/11/22 16:36 Urine pH 6 (5-7) 05/11/22 16:36 Ur Specific [place] 1.020 (1.005-1.030) 05/11/22 16:36 Urine Protein Neg (Negative) 05/11/22 16:36 Urine Glucose (UA) Norm (Normal) 05/11/22 16:36 Urine Ketones Negative (Negative) 05/11/22 16:36 Urine Blood Neg (Negative) 05/11/22 16:36 Urine Nitrate Negative (Negative) 05/11/22 16:36 Urine Bilirubin Neg (Negative) 05/11/22 16:36 Urine Urobilinogen Neg mg/dL (Negative) 05/11/22 16:36 Ur Leukocyte Esterase Negative (Negative) 05/11/22 16:36 Discharge Plan Discharge Patient Disposition: Home Clinical Impression: Abdominal pain Qualifiers: Abdominal location: right upper quadrant Qualified Code(s): R10.11 - Right upper quadrant pain Condition: Stable Prescriptions: No Action insulin glargine [Lantus Solostar U-100 Insulin] 100 unit/mL (3 mL) insulin pen 50 unit SUBCUT DAILY 30 Days Qty: 15 3RF (DME) Dexcom G6 Transmitter Device See Rx Instructions .ROUTE .MEDSUPPLY Qty: 1 3RF Rx Instructions: change every 3 months (DME) Dexcom G6 Filler In Misc See Rx Instructions .ROUTE .MEDSUPPLY Qty: 1 3RF Rx Instructions: change every 90 days (DME) Dexcom G6 Sensor Device See Rx Instructions .ROUTE .MEDSUPPLY Qty: 9 3RF Rx Instructions: change every 10 days atorvastatin 20 mg tablet 20 mg PO DAILY Qty: 90 2RF (DME) pen needle, diabetic [Comfort EZ Pen [place]] 32 gauge x 5/32 needle See Rx Instructions .Route Qty: 400 3RF Rx Instructions: As directed insulin aspart U-100 [Novolog FlexPen U-100 Insulin] 100 unit/mL (3 mL) insulin pen 20 unit SUBCUT .TIDAC 90 Days Qty: 60 3RF (DME) FreeStyle Priya 14 Day [place] Misc See Rx Instructions .Route Qty: 1 2RF Rx Instructions: As directed (DME) FreeStyle [place] 14 Day Sensor Kit See Rx Instructions .Route Qty: 2 0RF Rx Instructions: As directed zinc acetate 50 mg (zinc) Capsule 50 mg PO DAILY chlorthalidone 25 mg tablet 25 mg PO DAILY lisinopril 20 mg tablet 20 mg PO DAILY Qty: 30 0RF albuterol sulfate 90 mcg/actuation Hfa Aerosol Inhaler 2 puff INHALATION Q4H PRN (Reason: Shortness Of Breath) Probiotic 100 billion cell Capsule 1 cap PO QAM amlodipine 10 mg tablet 10 mg PO QAM ibuprofen 200 mg Tablet 400 mg PO Q6H PRN (Reason: Pain) Discharge Orders: Discharge ED (Routine); Ordered 05/11/22 Ordered By: Logan Fabian Referrals: Owen Barba MD [Primary Care Provider] - Discharge Diet: Usual diet Discharge Activity: Increase activity as tolerated Patient Instructions: Abdominal Pain (ED) Activity Restrictions/Additional Instructions: Home and rest. Continue with routine care. Follow-up with primary care for further evaluation and treatment. Return to emergency department for worsening symptoms or new concerns. Coding Level of Care Code ED Community Aide for Lizet Vickers
--- NOTE | 2022-05-11 18:46 | CTR_ITS ---
PROCEDURE INFORMATION: Exam: CT Abdomen And Pelvis With Contrast Exam date and time: 05/11/2022 7:51 PM Age: 41 years old Clinical indication: Pain; Other: Rlq, flank; Prior surgery; Surgery date: 6+ months; Surgery type: Gb/ tubal; Additional info: Right flank and abd pain, concern for abscess/or infection TECHNIQUE: Imaging protocol: Computed tomography of the abdomen and pelvis with contrast. Radiation optimization: All CT scans at this facility use at least one of these dose optimization techniques: automated exposure control; mA and/or kV adjustment per patient size (includes targeted exams where dose is matched to clinical indication); or iterative reconstruction. Contrast material: OMNIPAQUE 350; Contrast volume: 95 ml; Contrast route: INTRAVENOUS (IV); Other protocol: This patient has received 0 known CTs and 0 known cardiac nuclear medicine studies in the 12 months prior to the current study. COMPARISON: CR XR chest 1V portable [id number] 04/05/2022 9:15 AM RADIATION DOSE METRICS: Total DLP (mGy-cm): 1379.63 FINDINGS: Lungs: 6 mm right lower lobe nodule. 3 mm and 5 mm left lower lobe nodules. Liver: Normal. No mass. Gallbladder and bile ducts: Cholecystectomy. The bile ducts are normal. Pancreas: Normal. No ductal dilation. Spleen: Normal. No splenomegaly. Adrenal glands: Normal. No mass. Kidneys and ureters: Normal. No hydronephrosis. Stomach and bowel: Unremarkable. No obstruction. No mucosal thickening. Appendix: The appendix is visualized and is normal. Intraperitoneal space: Unremarkable. No free air. No significant fluid collection. Vasculature: Unremarkable. No abdominal aortic aneurysm. Lymph nodes: Unremarkable. No enlarged lymph nodes. Urinary bladder: Unremarkable as visualized. Reproductive: Unremarkable as visualized. Bones/joints: Unremarkable. No acute fracture. Soft tissues: Small fat containing umbilical hernia. CT/CT abdomen pelvis w con* [id number] IMPRESSION: 1. No acute findings. 2. Pulmonary nodules measuring up to 6 mm. For patients at low risk (minimal or absent history of smoking and of other known risk factors), recommend CT Chest at 3-6 months, then consider CT Chest at 18-24 months. For patients at high risk (history of smoking or of other known risk factors), recommend CT Chest at 3-6 months, then CT Chest at 18-24 months. (Reference: Ilan) References: Ilan Avery, et al. Guidelines for Management of Incidental Pulmonary Nodules Detected on CT Images: From the Fleischner Society 2017. Radiology. 2017;284(1):228-243.
[2022-05-11 19:24] VITALS: BP 121/83; PULSE 66; RESP 18; O2SAT 95
[2022-05-11] MEDS: sodium chloride 0.9% 1,000 ML 999 ML IV (19:31)
[2022-05-11 19:35] VITALS: BP 121/83; O2SAT 97
[2022-05-11] MEDS: iohexol 350 mg/mL 500 mL Btl (per mL) IV (20:02)
[2022-05-11 20:06] VITALS: BP 124/81; PULSE 64; RESP 16; O2SAT 95
== END 2022-05-11 20:55 | disposition home or self-care (01) ==
PROVIDERS: Physician Assistant; Emergency Provider Nurse Practitioner Family; PCP Family Medicine
DX: R10.11 Right upper quadrant pain (principal); Z79.4 Long term (current) use of insulin; E11.9 Type 2 diabetes mellitus without complications
CPT/HCPCS: 36415; 74177; 80053; 81003; 83690; 84703; 85025; 96360; 99285; J7030; Q9967

== ENCOUNTER 2022-07-04 13:40 | Outpatient (CLI) | payer OTHER, MEDICAID, SELFPAY ==
[2022-07-04 14:37] LABS: Alanine Aminotransferase 31 U/L (0-33); Alkaline Phosphatase 68 U/L (35-105); Anion Gap 13.8 (5-19); Aspartate Amino Transferase 20 U/L (0-32); Blood Urea Nitrogen 24 mg/dL (6-20); Carbon Dioxide 26 mmol/L (22-29); Chloride 95 mmol/L (98-107); Cholesterol 129 mg/dL (0-200); Globulin 2.9 g/dL (1.3-4.6); Glomerular Filtration Rate 54.2 mL/min (90-130); Glucose 135 mg/dL (65-115); HDL Cholesterol 46 mg/dL (60-100); LDL Cholesterol Calculated 63 mg/dL (50-129); LDL HDL Ratio 1.37 RATIO (0.00-3.22); Osmolality Calculated 278 mOsm/kg (285-295); Potassium 3.8 mmol/L (3.5-5.1); Sodium 131 mmol/L (136-145); Total Bilirubin 0.3 mg/dL (0.15-1.2); Total Protein 6.9 g/dL (6.6-8.7); Triglycerides 98 mg/dL (0-150)
[2022-07-04 14:43] LABS: Creatinine Urine, Random 150 mg/dL (28-217); Microalbum Creatinine Ratio Ur 7 mg/dL (0-20); Microalbumin Random Urine 1 ug/dL (0-20)
[2022-07-04 15:05] LABS: Estmated Average Glucose 148; Hemoglobin A1C 6.8 % (4.0-6.0)
== END 2022-07-04 13:41 | disposition home or self-care (01) ==
LOC: LAB 13:44
PROVIDERS: PCP Family Medicine; Visit Provider Internal Medicine
DX: E78.2 Mixed hyperlipidemia (principal)
CPT/HCPCS: 36415; 80053; 80061; 82044; 83036

== ENCOUNTER 2022-11-23 08:22 | Outpatient (CLI) | payer OTHER, MEDICAID, SELFPAY ==
[2022-11-23 09:17] LABS: Estmated Average Glucose 180; Hemoglobin A1C 7.9 % (4.0-6.0)
[2022-11-23 09:30] LABS: Creatinine Urine, Random 226 mg/dL (28-217); Microalbum Creatinine Ratio Ur 13 mg/dL (0-20); Microalbumin Random Urine 3 ug/dL (0-20)
[2022-11-23 09:32] LABS: Alanine Aminotransferase 30 U/L (0-33); Alkaline Phosphatase 82 U/L (35-105); Anion Gap 12.9 (5-19); Aspartate Amino Transferase 15 U/L (0-32); Blood Urea Nitrogen 20 mg/dL (6-20); Calcium 9.3 mg/dL (8.5-10.5); Carbon Dioxide 26 mmol/L (22-29); Chloride 101 mmol/L (98-107); Chol HDL Ratio 3.38 mg/dL (0.0-4.40); Cholesterol 135 mg/dL (0-200); Globulin 3.3 g/dL (1.3-4.6); Glomerular Filtration Rate 77.9 mL/min (90-130); Glucose 150 mg/dL (65-115); HDL Cholesterol 40 mg/dL (60-100); LDL Cholesterol Calculated 74 mg/dL (50-129); LDL HDL Ratio 1.85 RATIO (0.00-3.22); Osmolality Calculated 287 mOsm/kg (285-295); Potassium 3.9 mmol/L (3.5-5.1); Sodium 136 mmol/L (136-145); Total Bilirubin 0.5 mg/dL (0.15-1.2); Total Protein 7.3 g/dL (6.6-8.7); Triglycerides 107 mg/dL (0-150)
== END 2022-11-23 08:23 | disposition home or self-care (01) ==
PROVIDERS: PCP Family Medicine; Visit Provider Internal Medicine
DX: E78.2 Mixed hyperlipidemia (principal)
CPT/HCPCS: 36415; 80053; 80061; 82044; 83036

== ENCOUNTER 2022-12-30 12:31 | Outpatient (CLI) | payer OTHER, MEDICAID, SELFPAY ==
--- NOTE | 2022-12-30 12:37 | CT_ITS ---
WS: [id number] CT chest w con* [id number] HISTORY: MULTIPLE LUNG NODULES TECHNIQUE: Axial imaging performed through the thorax. Coronal and sagittal reformats are submitted. All CT scans at [facility] use at least one of these dose optimization techniques: automated exposure control; mA and/or kV adjustment per patient size (includes targeted exams where dose is mat ched to clinical indication); or iterative reconstruction. CONTRAST: Omnipaque 350; 100 mL IV. DLP: 932.38 mGy.cm COMPARISON: CT abdomen 05/11/2022 Lungs and central airway: Several subcentimeter, noncalcified pulmonary nodules are identified. Large st pulmonary nodule is 6 mm at the RIGHT lung base. 5 mm nodule at the RIGHT apex. Small perifissural nodules, RIGHT minor fissure. 3 mm nodule RIGHT lower lobe, image 37. Additional nodules at the LEFT lung base. Lingular nodule measuring 5 mm. No pleural effusion. Heart and pericardium: Heart is normal size. There is mild flattening of the interventricular septum and mildly prominent RIGHT ventricle. Mediastinum and kee: No mediastinum or hilar adenopathy. Vessels: Normal size aorta. There is marked enlargement of the pulmonary artery. Main pulmonary arter y measures 4.2 cm. Rapid tapering to the RIGHT and LEFT pulmonary arteries. Chest wall and lower neck: No soft tissue masses. Upper abdomen: Prior cholecystectomy. Mild hepatic steatosis throughout the liver. No adrenal mass. Osseous structures: No destructive process. IMPRESSION: 1. Subcentimeter bilateral pulmonary nodules. Surveillance of these pulmonary nodules is recommended to ensure stability. Differential includes infectious and neoplastic causes an early metastatic nodul es. 2. Marked enlargement of the pulmonary artery and mild RIGHT heart strain. Patient needs to be evalua lou for primary pulmonary hypertension. Recommend follow-up with cardiology. 3. Mild hepatic steatosis and prior cholecystectomy.
[2022-12-30] MEDS: iohexol 350 mg/mL 500 mL Btl (per mL) IV (12:42)
== END 2022-12-30 12:32 | disposition home or self-care (01) ==
PROVIDERS: PCP Family Medicine; Visit Provider Family Medicine
DX: R91.8 Other nonspecific abnormal finding of lung field (principal)
CPT/HCPCS: 71260; Q9967

== ENCOUNTER 2023-01-27 06:56 | Outpatient (CLI) | payer OTHER, MEDICAID, SELFPAY ==
--- NOTE | 2023-01-27 | USCV_ITS ---
Carmelina Garcia Age: 42 Gender: F : 1980 Exam Date: 01/27/2023 07:22 Ordering Phys: Owen Barba MD Technologist: CLAIRE Exam Location: [facility] [place] Indication: PULMONARY HTN BP: 130 / 80 HR: 63 Rhythm: Sinus Technical Quality: Adequate MEASUREMENTS (Male / Female) Normal Values 2D ECHO LVOT Diameter 2.1 cm LV Ejection Fraction MOD 2C 69.1 % LV Ejection Fraction 2C AL 70.1 % LA Diameter 4.1 cm LA Width 3.0 cm LA Height 5.9 cm RA Width 3.4 cm RA Height 5.0 cm Aorta at Sinotubular Diameter 2.6 cm M-MODE Aortic Annulus Diameter 2.9 cm LA Ao Ratio MM 1.4 MV E Point Septal Separation 0.8 cm DOPPLER AV Peak Velocity 165.0 cm/s LVOT Peak Velocity 140.0 cm/s AV Area Cont Eq vti 3.7 cm squared AV Area Cont Eq pk 2.8 cm squared MV Peak Velocity 97.0 cm/s MV Area PHT 2.6 cm squared Mitral E to A Ratio 1.1 MV E' Velocity 49.5 cm/s Mitral E to MV E' Ratio 9.5 Mitral E to LV E' Lateral Ratio 8.6 Mitral E to LV E' Septal Ratio 10.6 TR Peak Velocity 216.6 cm/s TR Peak Gradient 18.8 mmHg TR Mean Velocity 193.0 cm/s TR Mean Gradient 14.8 mmHg TR Velocity Time Integral 65.1 cm TV Peak E Velocity 57.0 cm/s Right Atrial Pressure 8.0 mmHg Pulmonary Artery Systolic Pressu 26.8 mmHg PV Peak Velocity 106.0 cm/s RV Acceleration Time 0.1 s RV Ejection Time 0.3 s RV AcT/ET 0.4 FINDINGS Left Ventricle Left ventricle is normal in size. LV systolic function is normal with EF of 55-60%. No regional wall motion abnormalities. Right Ventricle Normal in size and function Right Atrium Normal in size Left Atrium Normal in size Mitral Valve Structurally normal mitral valve. Mild mitral regurgitation. Aortic Valve Grossly normal. No significant stenosis or regurgitation. Tricuspid Valve Mild tricuspid regurgitation. Pulmonary artery systolic pressure is normal Pulmonic Valve Not well visualized. Mild pulmonic regurgitation. Pericardium Normal Aorta Normal in size IVC Not well visualized CONCLUSIONS LV systolic function is normal with EF of 55 to 60%. Mild mitral regurgitation Mild tricuspid regurgitation Mild pulmonic regurgitation No comparison studies are available. Margarito Peters MD (Electronically Signed) Final Date: 27 January 2023 11:15 S
[2023-01-27] MEDS: perflutren protein-a microsphr 0.22 mg/mL SDV 3 mL IV (07:51)
== END 2023-01-27 06:57 | disposition home or self-care (01) ==
LOC: RAD 06:56
PROVIDERS: PCP Family Medicine; Visit Provider Family Medicine
DX: I27.20 Pulmonary hypertension, unspecified (principal); I08.8 Other rheumatic multiple valve diseases
CPT/HCPCS: C8929; Q9956

== ENCOUNTER 2023-05-04 11:12 | Outpatient (CLI) | payer OTHER, MEDICAID, SELFPAY ==
[2023-05-04 12:07] LABS: Estmated Average Glucose 171; Hemoglobin A1C 7.6 % (4.0-6.0)
[2023-05-04 12:16] LABS: Creatinine Urine, Random 272 mg/dL (28-217); Microalbum Creatinine Ratio Ur 11 mg/dL (0-20); Microalbumin Random Urine 3 ug/dL (0-20)
[2023-05-04 12:17] LABS: Alanine Aminotransferase 24 U/L (0-33); Albumin Level 3.9 g/dL (3.5-5.2); Alkaline Phosphatase 88 U/L (35-105); Anion Gap 14.7 (5-19); Aspartate Amino Transferase 13 U/L (0-32); Blood Urea Nitrogen 19 mg/dL (6-20); Calcium 9.8 mg/dL (8.5-10.5); Carbon Dioxide 26 mmol/L (22-29); Chloride 98 mmol/L (98-107); Chol HDL Ratio 3.41 mg/dL (0.0-4.40); Cholesterol 126 mg/dL (0-200); Free T4 Free Thyroxine 1.36 ng/dL (0.82-1.77); Globulin 3.5 g/dL (1.3-4.6); Glomerular Filtration Rate 60.2 mL/min (90-130); Glucose 142 mg/dL (65-115); HDL Cholesterol 37 mg/dL (60-100); LDL Cholesterol Calculated 65 mg/dL (50-129); LDL HDL Ratio 1.76 RATIO (0.00-3.22); Osmolality Calculated 285 mOsm/kg (285-295); Potassium 3.7 mmol/L (3.5-5.1); Sodium 135 mmol/L (136-145); Thyroid Stimulating Hormone 1.44 uIU/mL (0.27-4.20); Total Bilirubin 0.3 mg/dL (0.15-1.2); Total Protein 7.4 g/dL (6.6-8.7); Triglycerides 119 mg/dL (0-150)
== END 2023-05-04 11:13 | disposition home or self-care (01) ==
PROVIDERS: PCP Family Medicine; Visit Provider Internal Medicine
DX: E78.2 Mixed hyperlipidemia (principal); E10.69 Type 1 diabetes mellitus with other specified complication; Z87.19 Personal history of other diseases of the digestive system; R10.9 Unspecified abdominal pain
CPT/HCPCS: 36415; 80053; 80061; 82044; 83036; 84439; 84443

== ENCOUNTER 2023-05-05 12:14 | Outpatient (CLI) | payer OTHER, MEDICAID, SELFPAY ==
[2023-05-05 13:23] LABS: Total Volume Urine 2750 ml
[2023-05-05 13:41] LABS: Urine Creatinine 74 mg/dL (28-217)
== END 2023-05-05 12:15 | disposition home or self-care (01) ==
LOC: LAB 12:17
PROVIDERS: PCP Family Medicine; Visit Provider Internal Medicine
DX: E78.2 Mixed hyperlipidemia (principal); Z87.19 Personal history of other diseases of the digestive system; R10.9 Unspecified abdominal pain
CPT/HCPCS: 82570

== ENCOUNTER → 2023-05-12 15:49 | Outpatient (BNVA) | payer OTHER, MEDICAID, SELFPAY | PROVIDERS: Family Provider Family Medicine; Visit Provider Emergency Medicine | DX: M79.602 Pain in left arm (principal) | CPT/HCPCS: 73060 ==

== ENCOUNTER 2023-07-31 07:52 | Outpatient (CLI) | payer OTHER, MEDICAID, SELFPAY ==
[2023-07-31 08:37] LABS: Estmated Average Glucose 151; Hemoglobin A1C 6.9 % (4.0-6.0)
[2023-07-31 08:45] LABS: Alanine Aminotransferase 19 U/L (0-33); Albumin Level 3.8 g/dL (3.5-5.2); Alkaline Phosphatase 66 U/L (35-105); Anion Gap 10.8 (5-19); Aspartate Amino Transferase 14 U/L (0-32); Blood Urea Nitrogen 19 mg/dL (6-20); Carbon Dioxide 28 mmol/L (22-29); Chloride 100 mmol/L (98-107); Chol HDL Ratio 2.48 mg/dL (0.0-4.40); Cholesterol 114 mg/dL (0-200); Globulin 2.9 g/dL (1.3-4.6); Glucose 154 mg/dL (65-115); HDL Cholesterol 46 mg/dL (60-100); LDL Cholesterol Calculated 52 mg/dL (50-129); LDL HDL Ratio 1.13 RATIO (0.00-3.22); Osmolality Calculated 285 mOsm/kg (285-295); Potassium 3.8 mmol/L (3.5-5.1); Sodium 135 mmol/L (136-145); Total Bilirubin 0.2 mg/dL (0.15-1.2); Total Protein 6.7 g/dL (6.6-8.7); Triglycerides 79 mg/dL (0-150)
[2023-07-31 09:20] LABS: Creatinine Urine, Random 123 mg/dL (28-217); Microalbum Creatinine Ratio Ur 16 mg/dL (0-20); Microalbumin Random Urine 2 ug/dL (0-20)
== END 2023-07-31 07:53 | disposition home or self-care (01) ==
LOC: LAB 07:56
PROVIDERS: PCP Family Medicine; Visit Provider Internal Medicine
DX: E11.9 Type 2 diabetes mellitus without complications (principal)
CPT/HCPCS: 36415; 80053; 80061; 82044; 83036

== ENCOUNTER 2023-08-29 07:47 | Outpatient (CLI) | payer OTHER, MEDICAID, SELFPAY ==
--- NOTE | 2023-08-29 07:52 | CT_ITS ---
WS: [id number] CT CHEST TECHNIQUE: Contrast enhanced CT of the chest with coronal and sagittal reformatted images. CLINICAL INFORMATION: MULTIPLE LUNG NODULES COMPARISON: CT chest 12/30/2022 DLP: 805.[address] scans at [facility] use at least one of these dose optimization techniques: automated e xposure control; mA and/or kV adjustment per patient size (includes targeted exams where dose is matc hed to clinical indication); or iterative reconstruction. FINDINGS: Again seen are numerous bilateral subcentimeter pulmonary nodules stable compared to 12/30/2022. Recom mend continued surveillance. Largest pulmonary nodules in the RIGHT lower lobe measuring 5 mm and LEFT lower lobe laterally measur ing 6 mm. There is a nodule in the lingula measuring 5 mm. Enlarged main pulmonary artery compatible with pulmonary arterial hypertension unchanged. Normal bailey mona thoracic aorta. No mediastinal or hilar lymphadenopathy. No axillary lymphadenopathy. Diffuse fatty infiltration of the liver. Prior cholecystectomy. Adrenal glands are normal. Small esop hageal hernia. Celiac and SMA are patent in the upper abdomen. Mild thoracic kyphosis. Anterior hyper trophic changes thoracic spine. CT/CT chest w con* [id number] IMPRESSION: 1. No significant changes in the multiple bilateral subcentimeter pulmonary no dules largest measuring 5 to 6 mm. No new nodules. Recommend continued surveill ance with 6 to 12-month follow-up. 2. Enlarged main pulmonary artery compatible with pulmonary arterial hypertens ion. Evidence of RIGHT heart strain similar to previous. 3. No mediastinal or hilar lymphadenopathy. 4. Diffuse fatty infiltration of the liver. 5. Prior cholecystectomy.
[2023-08-29] MEDS: iohexol 350 mg/mL 500 mL Btl (per mL) IV (08:27)
== END 2023-08-29 07:48 | disposition home or self-care (01) ==
LOC: RAD 07:47
PROVIDERS: PCP Family Medicine; Visit Provider Family Medicine
DX: R91.8 Other nonspecific abnormal finding of lung field (principal); I77.89 Other specified disorders of arteries and arterioles; K44.9 Diaphragmatic hernia without obstruction or gangrene; M40.204 Unspecified kyphosis, thoracic region; Z98.890 Other specified postprocedural states
CPT/HCPCS: 71260; Q9967

== ENCOUNTER 2023-09-20 08:55 | Outpatient (CLI) | payer OTHER, MEDICAID, SELFPAY ==
[2023-09-20 09:55] LABS: Alanine Aminotransferase 21 U/L (0-33); Albumin Level 4.3 g/dL (3.5-5.2); Alkaline Phosphatase 80 U/L (35-105); Anion Gap 18.9 (5-19); Aspartate Amino Transferase 23 U/L (0-32); Blood Urea Nitrogen 24 mg/dL (6-20); Calcium 9.8 mg/dL (8.5-10.5); Carbon Dioxide 26 mmol/L (22-29); Chloride 95 mmol/L (98-107); Cholesterol 115 mg/dL (0-200); Globulin 3.2 g/dL (1.3-4.6); Glomerular Filtration Rate 37.7 mL/min (90-130); Glucose 108 mg/dL (65-115); HDL Cholesterol 41 mg/dL (60-100); LDL Cholesterol Calculated 53 mg/dL (50-129); LDL HDL Ratio 1.29 RATIO (0.00-3.22); Osmolality Calculated 287 mOsm/kg (285-295); Potassium 3.9 mmol/L (3.5-5.1); Sodium 136 mmol/L (136-145); Total Bilirubin 0.4 mg/dL (0.15-1.2); Total Protein 7.5 g/dL (6.6-8.7); Triglycerides 104 mg/dL (0-150)
[2023-09-20 09:58] LABS: Creatinine Urine, Random 167 mg/dL (28-217); Microalbum Creatinine Ratio Ur 6 mg/dL (0-20); Microalbumin Random Urine 1 ug/dL (0-20)
[2023-09-20 10:29] LABS: Estmated Average Glucose 154
== END 2023-09-20 08:56 | disposition home or self-care (01) ==
LOC: LAB 08:57
PROVIDERS: PCP Family Medicine; Visit Provider Internal Medicine
DX: E78.2 Mixed hyperlipidemia (principal); Z87.19 Personal history of other diseases of the digestive system
CPT/HCPCS: 80053; 80061; 82044; 83036

== ENCOUNTER 2023-09-21 15:58 | Outpatient (CLI) | payer OTHER, MEDICAID, SELFPAY ==
[2023-09-21 18:54] LABS: Total Volume Urine 1700 ml
[2023-09-21 19:06] LABS: Urine Creatinine 156 mg/dL (28-217)
[2023-09-28 16:39] LABS: Free Cortisol Urine 15.9 mcg/24 h (4.0-50.0); Total Urine 1700 mL; Urine Creatinine 2.53 g/24 h (0.50-2.15)
== END 2023-09-21 15:59 | disposition home or self-care (01) ==
LOC: LAB 16:00
PROVIDERS: PCP Family Medicine; Visit Provider Internal Medicine
DX: E78.2 Mixed hyperlipidemia (principal); Z87.19 Personal history of other diseases of the digestive system
CPT/HCPCS: 82530; 82570

== ENCOUNTER 2023-10-09 09:23 | Outpatient (CLI) | payer OTHER, MEDICAID, SELFPAY ==
[2023-10-09 10:43] LABS: Anion Gap 11.6 (5-19); Blood Urea Nitrogen 18 mg/dL (6-20); Calcium 8.9 mg/dL (8.5-10.5); Carbon Dioxide 27 mmol/L (22-29); Chloride 100 mmol/L (98-107); Glomerular Filtration Rate 77.9 mL/min (90-130); Glucose 126 mg/dL (65-115); Osmolality Calculated 283 mOsm/kg (285-295); Potassium 3.6 mmol/L (3.5-5.1); Sodium 135 mmol/L (136-145)
== END 2023-10-09 09:24 | disposition home or self-care (01) ==
LOC: LAB 09:24
PROVIDERS: PCP Family Medicine; Visit Provider Internal Medicine
DX: R74.8 Abnormal levels of other serum enzymes (principal)
CPT/HCPCS: 36415; 80048

== ENCOUNTER → 2023-11-19 12:01 | Outpatient (BNVA) | payer OTHER, MEDICAID, SELFPAY | PROVIDERS: PCP Family Medicine; Visit Provider Emergency Medicine | DX: R30.0 Dysuria (principal) | CPT/HCPCS: 81000; 87086 ==

== ENCOUNTER → 2024-02-16 09:48 | Outpatient (BNVA) | payer OTHER, MEDICAID, SELFPAY | PROVIDERS: PCP Family Medicine; Visit Provider Emergency Medicine | DX: J06.9 Acute upper respiratory infection, unspecified (principal); U07.1 COVID-19 | CPT/HCPCS: 87426 ==

== ENCOUNTER 2024-04-26 10:17 | Outpatient (CLI) | payer OTHER, MEDICAID, SELFPAY ==
[2024-04-26 10:58] LABS: Alanine Aminotransferase 20 U/L (0-33); Albumin Level 4.2 g/dL (3.5-5.2); Alkaline Phosphatase 71 U/L (35-105); Anion Gap 14.5 (5-19); Aspartate Amino Transferase 15 U/L (0-32); Blood Urea Nitrogen 16 mg/dL (6-20); Carbon Dioxide 26 mmol/L (22-29); Chloride 98 mmol/L (98-107); Chol HDL Ratio 3.15 mg/dL (0.0-4.40); Cholesterol 129 mg/dL (0-200); Globulin 3.2 g/dL (1.3-4.6); Glomerular Filtration Rate 77.6 mL/min (90-130); Glucose 142 mg/dL (65-115); HDL Cholesterol 41 mg/dL (60-100); LDL Cholesterol Calculated 48 mg/dL (50-129); LDL HDL Ratio 1.17 RATIO (0.00-3.22); Osmolality Calculated 284 mOsm/kg (285-295); Potassium 3.5 mmol/L (3.5-5.1); Sodium 135 mmol/L (136-145); Total Bilirubin 0.3 mg/dL (0.15-1.2); Total Protein 7.4 g/dL (6.6-8.7); Triglycerides 199 mg/dL (0-150)
[2024-04-26 11:00] LABS: Estmated Average Glucose 148; Hemoglobin A1C 6.8 % (4.0-6.0)
[2024-04-26 11:01] LABS: Creatinine Urine, Random 303 mg/dL (28-217); Microalbum Creatinine Ratio Ur 7 mg/dL (0-20); Microalbumin Random Urine 2 ug/dL (0-20)
== END 2024-04-26 10:18 | disposition home or self-care (01) ==
LOC: LAB 10:20
PROVIDERS: PCP Nurse Practitioner Family; Visit Provider Internal Medicine
DX: E78.2 Mixed hyperlipidemia (principal)
CPT/HCPCS: 80053; 80061; 82044; 83036

== ENCOUNTER 2024-05-17 07:45 | Outpatient (CLI) | payer OTHER, MEDICAID, SELFPAY ==
--- NOTE | 2024-05-17 07:46 | MM_ITS ---
WS: [id number] BILATERAL SCREENING DIGITAL TOMOSYNTHESIS MAMMOGRAM WITH CAD HISTORY: SCREENING COMPARISON: 06/10/2021, 10/04/2019 Bilateral CC and MLO views with tomosynthesis and synthetic mammography submitted. Computer aided detection analyzed. Breast composition: The breasts are almost entirely fatty. No suspicious masses, microcalcifications or architectural distortion. MM/MM scr BI tomosynthesis [id number] IMPRESSION: BI-RADS: 2 - Benign. FOLLOW UP: 1 Year Follow-up
== END 2024-05-17 07:46 | disposition home or self-care (01) ==
LOC: RAD 07:46
PROVIDERS: PCP Nurse Practitioner Family; Visit Provider Nurse Practitioner Family
DX: Z12.31 Encounter for screening mammogram for malignant neoplasm of breast (principal); R92.313 Mammographic fatty tissue density, bilateral breasts
CPT/HCPCS: 77063; 77067

== ENCOUNTER 2024-07-26 08:09 | Outpatient (CLI) | payer OTHER, MEDICAID, SELFPAY ==
[2024-07-26 08:55] LABS: Alanine Aminotransferase 19 U/L (0-33); Albumin Level 4.3 g/dL (3.5-5.2); Alkaline Phosphatase 72 U/L (35-105); Aspartate Amino Transferase 15 U/L (0-32); Blood Urea Nitrogen 18 mg/dL (6-20); Calcium 9.6 mg/dL (8.5-10.5); Carbon Dioxide 29 mmol/L (22-29); Chloride 101 mmol/L (98-107); Chol HDL Ratio 2.46 mg/dL (0.0-4.40); Cholesterol 118 mg/dL (0-200); Globulin 3.1 g/dL (1.3-4.6); Glomerular Filtration Rate 77.6 mL/min (90-130); Glucose 141 mg/dL (65-115); HDL Cholesterol 48 mg/dL (60-100); LDL Cholesterol Calculated 54 mg/dL (50-129); LDL HDL Ratio 1.13 RATIO (0.00-3.22); Osmolality Calculated 292 mOsm/kg (285-295); Sodium 139 mmol/L (136-145); Total Bilirubin 0.4 mg/dL (0.15-1.2); Total Protein 7.4 g/dL (6.6-8.7); Triglycerides 82 mg/dL (0-150)
[2024-07-26 09:00] LABS: Creatinine Urine, Random 194 mg/dL (28-217); Microalbum Creatinine Ratio Ur 26 mg/dL (0-20); Microalbumin Random Urine 5 ug/dL (0-20)
[2024-07-26 09:00] LABS: Estmated Average Glucose 157; Hemoglobin A1C 7.1 % (4.0-6.0)
== END 2024-07-26 08:10 | disposition home or self-care (01) ==
LOC: LAB 08:12
PROVIDERS: PCP Nurse Practitioner Family; Visit Provider Internal Medicine
DX: E78.2 Mixed hyperlipidemia (principal)
CPT/HCPCS: 80053; 80061; 82044; 83036

== ENCOUNTER → 2024-09-12 12:28 | Outpatient (BNVA) | payer OTHER, MEDICAID, SELFPAY | PROVIDERS: PCP Nurse Practitioner Family; Referring Provider Nurse Practitioner Family; Visit Provider Internal Medicine | DX: I45.2 Bifascicular block (principal); R00.2 Palpitations | CPT/HCPCS: 93005 ==

== ENCOUNTER 2024-09-17 11:53 | Outpatient (CLI) | payer OTHER, MEDICAID, SELFPAY ==
--- NOTE | 2024-09-17 12:00 | USCV_ITS ---
Carmeilna Garcia Age: 43 Gender: F : 1980 Exam Date: 09/17/2024 12:15 Ordering Phys: Margarito Peters M.D ([email or web address]) Technologist: [place] [facility] [place]: cp sob BP: 109 / 73 HR: 74 Rhythm: Sinus Technical Quality: Adequate MEASUREMENTS (Male / Female) Normal Values 2D ECHO LV Diastolic Diameter PLAX 5.9 cm 4.2 - 5.9 / 3.9 - 5.3 cm IVS Diastolic Thickness 1.7 cm 0.6 - 1.0 / 0.6 - 0.9 cm IVS Systolic Thickness 1.8 cm LVPW Diastolic Thickness 1.2 cm 0.6 - 1.0 / 0.6 - 0.9 cm LVPW Systolic Thickness 2.0 cm LVOT Diameter 2.3 cm LV Ejection Fraction 2D Teich 63.3 % LV Ejection Fraction MOD 4C 67.8 % LV Ejection Fraction MOD 2C 65.2 % LV Ejection Fraction 2C AL 66.0 % LA Diameter 4.0 cm RA Systolic Volume 4C AL 54.4 ml RA Systolic Volume 4C MOD 53.9 ml LA Sys Volume AL 71.5 cm cubed LA Sys Volume Index AL 28.3 cm cubed/m squared Aorta at Sinotubular Diameter 3.8 cm IVC Diameter 2.2 cm M-MODE LA Ao Ratio MM 1.6 AV Cusp Separation MM 2.5 cm DOPPLER AV Peak Velocity 176.0 cm/s LVOT Peak Velocity 105.0 cm/s AV Area Cont Eq vti 2.8 cm squared AV Area Cont Eq pk 2.5 cm squared MV Peak Velocity 108.0 cm/s MV Area PHT 3.4 cm squared Mitral E to A Ratio 1.1 TR Peak Velocity 157.0 cm/s TR Peak Gradient 9.9 mmHg TV Peak E Velocity 87.0 cm/s PV Peak Velocity 136.0 cm/s FINDINGS Left Ventricle Left ventricle is normal in size. LV systolic function is normal with EF of 55-60%. No regional wall motion abnormalities are seen. Right Ventricle Normal in size and function Right Atrium Normal in size Left Atrium Dilated Mitral Valve Structurally normal mitral valve. Mild mitral regurgitation. Aortic Valve Structurally normal aortic valve. No significant stenosis or regurgitation. Tricuspid Valve Insufficient TR jet to calculate RVSP Pulmonic Valve Trace pulmonic regurgitation. Pericardium Normal Aorta Normal in size IVC Not well visualized CONCLUSIONS LV systolic function is normal with EF of 55-60% Left atrial dilation Mild mitral regurgitation Trace pulmonic regurgitation Compared to prior echocardiogram from 2022, no significant changes are seen. Margarito Peters MD (Electronically Signed) Final Date: 29 September 2024 15:32 S
== END 2024-09-17 11:54 | disposition home or self-care (01) ==
PROVIDERS: PCP Nurse Practitioner Family; Visit Provider Internal Medicine
DX: R00.2 Palpitations (principal); I34.0 Nonrheumatic mitral (valve) insufficiency; I51.7 Cardiomegaly
CPT/HCPCS: 93306

== ENCOUNTER 2024-11-18 07:19 | Outpatient (CLI) | payer OTHER, MEDICAID, SELFPAY ==
[2024-11-18 08:15] LABS: Alanine Aminotransferase 15 U/L (0-33); Albumin Level 4.0 g/dL (3.5-5.2); Alkaline Phosphatase 74 U/L (35-105); Anion Gap 11.5 (5-19); Aspartate Amino Transferase 12 U/L (0-32); Blood Urea Nitrogen 16 mg/dL (6-20); Calcium 9.2 mg/dL (8.5-10.5); Carbon Dioxide 29 mmol/L (22-29); Chloride 100 mmol/L (98-107); Cholesterol 121 mg/dL (0-200); Globulin 2.9 g/dL (1.3-4.6); Glucose 91 mg/dL (65-115); HDL Cholesterol 41 mg/dL (60-100); Osmolality Calculated 285 mOsm/kg (285-295); Potassium 3.5 mmol/L (3.5-5.1); Sodium 137 mmol/L (136-145); Total Protein 6.9 g/dL (6.6-8.7); Triglycerides 83 mg/dL (0-150)
[2024-11-18 08:35] LABS: Creatinine Urine, Random 183 mg/dL (28-217)
[2024-11-18 08:41] LABS: Microalbum Creatinine Ratio Ur 109 mg/dL (0-20)
[2024-11-18 09:02] LABS: Estmated Average Glucose 157; Hemoglobin A1C 7.1 % (4.0-6.0)
== END 2024-11-18 07:20 | disposition home or self-care (01) ==
LOC: LAB 07:20
PROVIDERS: PCP Nurse Practitioner Family; Visit Provider Internal Medicine
DX: E78.2 Mixed hyperlipidemia (principal)
CPT/HCPCS: 36415; 80053; 80061; 82044; 83036